=== PATIENT | female | born 1970 | race African-American/Black ===

== ENCOUNTER 2022-12-25 11:27 | Emergency (ER) | payer MEDICAID ==
[~2022-12-25] VITALS: Ht 160 cm; Wt 76.0 kg
[2022-12-25 11:31] VITALS: O2SAT 99
[2022-12-25] MEDS ORDERED: ACETAMINOPHEN WITH CODEINE 300/30MG TABLET PO ONE (12:00)
[2022-12-25] MEDS ORDERED: T3 PO ×4 (14:27→14:46)
[2022-12-25] MEDS ORDERED: IBUP-2028 PO ×4 (14:27→14:38)
[2022-12-25] MEDS ORDERED: BO1 TP ×4 (14:27→14:38)
[2022-12-25] MEDS ORDERED: KETOROLAC 60MG/2ML VIAL IM ONE (14:45)
[2022-12-25 17:14] VITALS: BP 135/93; PULSE 94; RESP 20; TEMP 98
[2022-12-26] MEDS ORDERED: BO1 TP (11:54)
[2022-12-26] MEDS ORDERED: IBUP-2028 PO (11:54)
[2022-12-26] MEDS ORDERED: T3 PO (11:54)
== END 2022-12-25 17:31 | disposition home or self-care (01) ==
LOC: ER 12:58
DX: S52.502A Unspecified fracture of the lower end of left radius, initial encounter for closed fracture (principal); S01.81XA Laceration without foreign body of other part of head, initial encounter; E11.9 Type 2 diabetes mellitus without complications; W01.0XXA Fall on same level from slipping, tripping and stumbling without subsequent striking against object, initial encounter; Y93.89 Activity, other specified; Y92.89 Other specified places as the place of occurrence of the external cause; Y99.8 Other external cause status
CPT/HCPCS: 99285; 70450; 29105; 72170; 73070; 73100; 73560; 72125; 96372; J1885; L3670